=== PATIENT | male | born 1970 | race Hispanic/Latino ===

== ENCOUNTER 2022-03-10 16:07 | Inpatient (IN) | payer BC ==
[~2022-03-10] VITALS: Ht 185.4 cm; Wt 108.9 kg
[~2022-03-10 16:07] MED LIST: KETOROLAC TROMETHAMINE 30 MG/ML VIAL ONE; LIDOCAINE HCL 2% LOCAL INJ 5 ML SDV VIAL INJ ONE; ONDANSETRON HCL INJ 2MG/ML 2ML 2 MG/ML VIAL ONE; POVIDONE IODINE 0.05% 0.05 % ML PO ONE; PROPOFOL IV EMULSION 10 MG/ML 20 ML VIAL ONE; SEVOFLURANE INHAL SOLN 250 ML PEN BTL ONE
[2022-03-10 17:27] LABS: BASOPHILS % 0.3 % (0.0-1.0); EOSINOPHILS # (AUTO) 0.2 (0.0-0.4); HEMOGLOBIN 15.3 g/dL (14.0-18.0); LYMPHOCYTES # (AUTO) 2.6 (1.0-3.2); LYMPHOCYTES % 28.8 % (18.0-39.1); MEAN CORPUSCULAR HEMOGLOBIN 29.7 pg (28-32); MEAN CORPUSCULAR HGB CONC 31.9 g/dL (31-35); MONOCYTES # (AUTO) 0.6 (0.2-0.8); MONOCYTES % 6.7 % (4.4-11.3); NEUTROPHILS # (AUTO) 5.6 (2.1-6.9); NEUTROPHILS % 62.1 % (38.7-80.0); PLATELET COUNT 396 x10e3/uL (140-360); RED BLOOD COUNT 5.16 x10e6/uL (4.3-5.7); RED CELL DISTRIBUTION WIDTH 12.7 % (11.7-14.4)
[2022-03-10 17:33] LABS: CLARITY,URINE CLOUDY (CLEAR); COLOR,URINE YELLOW (YELLOW)
[2022-03-10 17:34] LABS: KETONES,URINE 1+ (NEGATIVE); LEUKOCYTE ESTERASE ,URINE 1+ (NEGATIVE); NITRITE,URINE NEGATIVE (NEGATIVE); PROTEIN,URINE DIPSTICK 2+ (NEGATIVE); URINE UROBILINOGEN 0.2 mg/dL (0.2 - 1)
[2022-03-10 17:41] LABS: ALBUMIN 4.2 g/dL (3.5-5.0); ANION GAP 16.6 mmol/L (8-16); CALCIUM 10.3 mg/dL (8.4-10.2); CREATININE, SERUM 0.81 mg/dL (0.72-1.25); POTASSIUM 3.6 mmol/L (3.5-5.1)
[2022-03-10 17:44] LABS: BACTERIA,URINE MODERATE /HPF; EPITHELIAL CELLS,URINE MODERATE /LPF; RBC,URINE 0-5 /HPF (0-5)
[2022-03-10] MEDS: SODIUM CHLORIDE 0.9% 1000ML 1,000 ML IV SCH (17:49)
[2022-03-10] MEDS ORDERED: SODIUM CHLORIDE 0.9% 1000ML 1,000 ML ONE (17:54)
[2022-03-10] MEDS: Vancomycin IV 1 GM in SODIUM CHLORIDE 0.9% 250ML 250 ML IV SCH (18:32)
[2022-03-10] MEDS ORDERED: ACETAMINOPHEN 325 MG TAB PO PRN (19:15)
[2022-03-10] MEDS ORDERED: DEXTROSE 50% SYRINGE 50 ML IV PRN (21:15)
[2022-03-10] MEDS: INSULIN REGULAR, HUMAN 100 UNIT/1 ML SQ SCH (21:15)
[2022-03-10] MEDS: ONDANSETRON HCL INJ 2MG/ML 2ML 2 MG/ML VIAL IV PRN (21:21)
[2022-03-10] MEDS: Morphine 4mg INJECTION 4 MG/ML INJ IV PRN (21:21)
[2022-03-10 23:33] VITALS: BP 129/70
[2022-03-11] MEDS ORDERED: GABAPENTIN100 MG PO (00:09)
[2022-03-11] MEDS: SODIUM CHLORIDE 0.9% 1000ML 1,000 ML IV SCH ×3 (01:30→17:27)
[2022-03-11 06:06] LABS: BASOPHILS % 0.6 % (0.0-1.0); EOSINOPHILS # (AUTO) 0.2 (0.0-0.4); EOSINOPHILS % 2.5 % (0.0-6.0); HEMATOCRIT 41.6 % (38.2-49.6); HEMOGLOBIN 13.1 g/dL (14.0-18.0); LYMPHOCYTES % 28.8 % (18.0-39.1); MEAN CORPUSCULAR HEMOGLOBIN 29.6 pg (28-32); MEAN CORPUSCULAR HGB CONC 31.5 g/dL (31-35); MEAN CORPUSCULAR VOLUME 94.1 fL (81-99); MONOCYTES # (AUTO) 0.6 (0.2-0.8); MONOCYTES % 8.1 % (4.4-11.3); NEUTROPHILS # (AUTO) 4.1 (2.1-6.9); NEUTROPHILS % 59.7 % (38.7-80.0); PLATELET COUNT 321 x10e3/uL (140-360); RED BLOOD COUNT 4.42 x10e6/uL (4.3-5.7); RED CELL DISTRIBUTION WIDTH 12.7 % (11.7-14.4)
[2022-03-11 06:34] LABS: ALBUMIN/GLOBULIN RATIO 0.9 (0.8-2.0); ANION GAP 11.9 mmol/L (8-16); CALCIUM 8.6 mg/dL (8.4-10.2); CREATININE, SERUM 0.78 mg/dL (0.72-1.25); POTASSIUM 3.9 mmol/L (3.5-5.1)
[2022-03-11] MEDS ORDERED: BUPIVACAINE HCL 0.25% 10ML MPF VIAL INJ ONE ×2 (06:36)
[2022-03-11] MEDS ORDERED: TRULICITY3 MG/0.5 M (07:33)
[2022-03-11] MEDS ORDERED: ATORVASTATIN CA20 MG PO (07:34)
[2022-03-11] MEDS ORDERED: LANTUS 3ML100 UNITS/ (07:35)
[2022-03-11] MEDS ORDERED: METOPROLOL TART25 MG PO (07:36)
[2022-03-11] MEDS ORDERED: LEVOTHYROXINE112 MCG PO (07:38)
[2022-03-11] MEDS ORDERED: BUPIVACAINE 0.5%/EPI 30 ML SDV INJ ONE ×2 (07:43→07:44)
[2022-03-11] MEDS ORDERED: FENTANYL CITRATE/PF 100MCG/2 ML INJ ONE ×2 (08:12→13:21)
[2022-03-11] MEDS ORDERED: ACETAMINOPHEN/CODEINE 300MG - 30MG TAB PO PRN (08:45)
[2022-03-11 09:10] VITALS: BP 150/81
[2022-03-11] MEDS: Vancomycin IV 1 GM in SODIUM CHLORIDE 0.9% 250ML 250 ML IV SCH ×2 (09:18→20:00)
[2022-03-11] MEDS: INSULIN REGULAR, HUMAN 100 UNIT/1 ML SQ SCH ×4 (09:28→21:00)
[2022-03-11 09:30] VITALS: BP 150/81
[2022-03-11] MEDS ORDERED: MIDAZOLAM HCL 2 MG/2 ML VIAL ONE (13:21)
[2022-03-11] MEDS ORDERED: LISINOPRIL5 MG PO (13:22)
[2022-03-11 16:27] VITALS: BP 148/74
[2022-03-11] MEDS ORDERED: IOPAMIDOL 370 MG/ML 100 ML INFUS..BTL INJ ONE (17:34)
[2022-03-11 20:00] VITALS: BP 145/81
[2022-03-11 21:00] VITALS: BP 145/81
[2022-03-11] MEDS ORDERED: INSULIN GLARGINE 100 UNITS/ML VIAL SQ SCH (21:00)
[2022-03-11] MEDS: ATORVASTATIN 20 MG TAB PO SCH (21:00)
[2022-03-12] VITALS (8 sets, daily range): BP systolic 137–155; BP diastolic 74–83
[2022-03-12] MEDS: LEVOTHYROXINE SODIUM 75 MCG TAB PO SCH (05:32)
[2022-03-12 06:27] LABS: BASOPHILS % 0.5 % (0.0-1.0); EOSINOPHILS # (AUTO) 0.1 (0.0-0.4); EOSINOPHILS % 1.7 % (0.0-6.0); HEMOGLOBIN 13.7 g/dL (14.0-18.0); LYMPHOCYTES # (AUTO) 1.7 (1.0-3.2); LYMPHOCYTES % 20.1 % (18.0-39.1); MEAN CORPUSCULAR HEMOGLOBIN 29.2 pg (28-32); MEAN CORPUSCULAR HGB CONC 32.6 g/dL (31-35); MEAN CORPUSCULAR VOLUME 89.6 fL (81-99); MONOCYTES # (AUTO) 0.7 (0.2-0.8); MONOCYTES % 8.2 % (4.4-11.3); NEUTROPHILS # (AUTO) 5.7 (2.1-6.9); NEUTROPHILS % 69.3 % (38.7-80.0); PLATELET COUNT 321 x10e3/uL (140-360); RED BLOOD COUNT 4.69 x10e6/uL (4.3-5.7); RED CELL DISTRIBUTION WIDTH 12.9 % (11.7-14.4)
[2022-03-12 06:40] LABS: ANION GAP 12.9 mmol/L (8-16); CALCIUM 8.9 mg/dL (8.4-10.2); CREATININE, SERUM 0.86 mg/dL (0.72-1.25); POTASSIUM 3.9 mmol/L (3.5-5.1)
[2022-03-12] MEDS: Vancomycin IV 1 GM in SODIUM CHLORIDE 0.9% 250ML 250 ML IV SCH (08:50)
[2022-03-12] MEDS ORDERED: METOPROLOL TARTRATE 25 MG TAB PO SCH (09:00)
[2022-03-12] MEDS: INSULIN REGULAR, HUMAN 100 UNIT/1 ML SQ SCH ×4 (09:09→21:03)
[2022-03-12] MEDS: LISINOPRIL 10 MG TAB PO SCH (09:10)
[2022-03-12] MEDS: ONDANSETRON HCL INJ 2MG/ML 2ML 2 MG/ML VIAL IV PRN (16:13)
[2022-03-12] MEDS: Morphine 4mg INJECTION 4 MG/ML INJ IV PRN (16:13)
[2022-03-12] MEDS: ATORVASTATIN 20 MG TAB PO SCH (20:52)
[2022-03-12] MEDS ORDERED: INSULIN GLARGINE 100 UNITS/ML VIAL SQ SCH (21:00)
[2022-03-13] MEDS: SODIUM CHLORIDE 0.9% 1000ML 1,000 ML IV SCH ×3 (00:30→11:25)
[2022-03-13 01:01] VITALS: BP 149/77
[2022-03-13] MEDS: LEVOTHYROXINE SODIUM 75 MCG TAB PO SCH (05:29)
[2022-03-13 05:40] VITALS: BP 148/88
[2022-03-13 07:54] VITALS: BP 148/84
[2022-03-13 08:02] VITALS: BP 148/84
[2022-03-13] MEDS: LISINOPRIL 10 MG TAB PO SCH (08:35)
[2022-03-13] MEDS: INSULIN REGULAR, HUMAN 100 UNIT/1 ML SQ SCH ×2 (08:40→11:49)
[2022-03-13 11:40] VITALS: BP 157/84
[2022-03-13] MEDS ORDERED: tylenol #3 PO (14:08)
[2022-03-13] MEDS ORDERED: augmentin PO (14:09)
[2022-03-14] MEDS ORDERED: ACETAMINOPHEN-1 EAC4 PO (12:36)
== END 2022-03-13 14:55 | disposition home or self-care (01) | DRG 728 ==
LOC: ER 16:12 → ERHOLD 19:07 → MED/SURG3 22:21
PROVIDERS: ADMIT Internal Medicine; ATTEND Internal Medicine
PROC: 0V953ZZ Drainage of Scrotum, Percutaneous Approach (ICD-10-PCS; principal; 2022-03-11 07:13)
DX: N49.2 Inflammatory disorders of scrotum (principal); N39.0 Urinary tract infection, site not specified; I10 Essential (primary) hypertension; E78.00 Pure hypercholesterolemia, unspecified; E03.9 Hypothyroidism, unspecified; E27.9 Disorder of adrenal gland, unspecified; Z20.822 Contact with and (suspected) exposure to COVID-19; N47.1 Phimosis; E66.09 Other obesity due to excess calories; Z68.31 Body mass index [BMI] 31.0-31.9, adult; D64.9 Anemia, unspecified; R31.9 Hematuria, unspecified; N40.0 Benign prostatic hyperplasia without lower urinary tract symptoms; B95.1 Streptococcus, group B, as the cause of diseases classified elsewhere; E83.52 Hypercalcemia; E11.9 Type 2 diabetes mellitus without complications
CPT/HCPCS: 0223U; 36415; 71045; 74170; 74177; 80048; 80053; 80202; 81001; 82948; 83036; 83605; 84443; 85025; 87040; 87071; 87075; 87086; 87186; 87205; 93005; 94799; 99284; J0690; J1885; J2001; J2250; J2270; J2405; J2543; J3010; J3370; J7030; J7050; Q9967